=== PATIENT | male | born 1955 | race Caucasian/White ===

== ENCOUNTER 2017-03-24 12:56 | Emergency (ER) | payer OTHER, BC ==
[~2017-03-24] VITALS: Ht 165.1 cm; Wt 95.3 kg
[~2017-03-24 12:56] MED LIST: ALBU0.63 NEB; ALPR0.5T PO; CHOL10002 PO; FLUT1DIS5 IH; LIRA0.6P SQ; MELO15TA6 PO; MOME15OI TP; OLME1TAB35 PO; TADA5TAB PO; XOPENEX HFA15 GM IH
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
[2017-03-24] MEDS ORDERED: IV NORMAL SALINE 1,000ML 1,000 ML IV SCH (13:09)
[2017-03-24] MEDS ORDERED: DIPHTH,PERTUSS(ACELL),TET TOX 0.5 ML DISP.SYRIN. VAX IM ONE (13:15)
[2017-03-24 13:27] LABS: BASO % 0 % (0-3); EOS # 0.1 x10^3/uL (0.0-0.7); EOS % 1 % (0-3); HEMATOCRIT 51.2 % (39.0-53.0); HEMOGLOBIN 16.9 g/dL (13.0-17.5); LYMPH # 2.1 x10^3/uL (1.0-4.8); LYMPH % 17 % (24-48); MEAN CORPUSCULAR HEMOGLOBIN 29 pg (25-35); MEAN CORPUSCULAR HGB CONC 33 g/dL (31-37); MEAN CORPUSCULAR VOLUME 86 fL (79-100); MONO # 0.7 x10^3/uL (0.0-1.1); MONO % 6 % (0-9); NEUT # 9.4 x10^3uL (1.8-7.7); NEUT % 76 % (31-73); PLATELET COUNT 240 x10^3/uL (140-400); RED BLOOD COUNT 5.93 x10^6/uL (4.30-5.70); WHITE BLOOD COUNT 12.4 x10^3/uL (4.0-11.0)
[2017-03-24 13:39] LABS: ALBUMIN 3.8 g/dL (3.4-5.0); CALCIUM 9.3 mg/dL (8.5-10.1); CREATININE 1.4 mg/dL (0.7-1.3); DIRECT BILIRUBIN 0.1 mg/dL (0.0-0.2); GFR 51.4; POTASSIUM 4.5 mmol/L (3.5-5.1); TOTAL BILIRUBIN 0.6 mg/dL (0.2-1.0); TOTAL PROTEIN 7.1 g/dL (6.4-8.2)
[2017-03-24] MEDS ORDERED: IOHEXOL 300 MG/ML 50 ML VIAL. IV ONE (13:50)
[2017-03-24] MEDS ORDERED: IOHEXOL 300 MG/ML 75 ML VIAL. IV ONE (13:50)
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
--- NOTE | 2017-03-24 14:28 | EKG ---
[address] [address] Test Date: 2017-03-24 Test Time: 13:19:14 Pat Name: SATISH BOYD Department: Room: Gender: M Conference Concierge: JACINTO : 1955 Requested By: LACIE SOLITARIO Order Number: [id number] Reading MD: Khris Avalos Measurements Intervals [place] Rate: 86 P: 51 IA: 132 QRS: 26 QRSD: 106 T: 41 QT: 328 QTc: 395 Interpretive Statements SINUS RHYTHM Electronically Signed On 04-07-2017 14:10:32 CDT by Khris Avalos
[2017-03-24] MEDS: MORPHINE SULFATE 2 MG/ML DISP.SYRIN. IV/SQ PRN ×3 (14:45→17:50)
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
[2017-03-24 15:32] LABS: AMPHETAMINE/METHAMPHETAMINE NEG (NEG); BARBITURATES NEG (NEG); BENZODIAZEPINES POS (NEG); CANNABINOIDS NEG (NEG); COCAINE NEG (NEG); METHADONE NEG (NEG); OPIATES NEG (NEG); PHENCYCLIDINE NEG (NEG)
[2017-03-24 15:36] LABS: CLARITY,URINE CLEAR; COLOR,URINE YELLOW
[2017-03-24 15:37] LABS: BACTERIA,URINE 0 /HPF (0-FEW); BILIRUBIN,URINE NEG (NEG); GLUCOSE,URINE 100 mg/dL (NEG); NITRITE,URINE NEG (NEG); RBC,URINE OCC /HPF (0-2); SQUAMOUS EPITHELIAL CELL,UR OCC /LPF; UROBILINOGEN,URINE 0.2 mg/dL (0.2 mg/dL)
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
[2017-03-24 17:39] VITALS: BP 146/79
== END 2017-03-24 17:55 | disposition short-term general hospital (02) ==
LOC: ER 12:56
DX: S22.42XA Multiple fractures of ribs, left side, initial encounter for closed fracture (principal); S00.83XA Contusion of other part of head, initial encounter; E11.9 Type 2 diabetes mellitus without complications; I10 Essential (primary) hypertension; M79.602 Pain in left arm; M25.562 Pain in left knee; Z88.5 Allergy status to narcotic agent; V29.9XXA Motorcycle rider (driver) (passenger) injured in unspecified traffic accident, initial encounter; Y93.55 Activity, bike riding; Y99.8 Other external cause status; Y92.89 Other specified places as the place of occurrence of the external cause
CPT/HCPCS: 36415; 70450; 70491; 71010; 71260; 72125; 72128; 72131; 73030; 73562; 74177; 80048; 80076; 80307; 81001; 82150; 83605; 83690; 85027; 85610; 85730; 86850; 86900; 86901; 90471; 90715; 93005; 96361; 96374; 96376; 99285; G0480; J2270; Q9967; 80305; G0481; G0479; J7030

== ENCOUNTER 2017-03-29 18:13 | Emergency (ER) | payer OTHER, BC ==
[~2017-03-29] VITALS: Ht 165.1 cm; Wt 95.3 kg
[2017-03-29 18:25] VITALS: BP 143/87
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
[2017-03-29 19:18] LABS: BASO % 0 % (0-3); EOS # 0.2 x10^3/uL (0.0-0.7); EOS % 3 % (0-3); HEMATOCRIT 47.2 % (39.0-53.0); HEMOGLOBIN 15.8 g/dL (13.0-17.5); LYMPH # 1.4 x10^3/uL (1.0-4.8); LYMPH % 17 % (24-48); MEAN CORPUSCULAR HEMOGLOBIN 29 pg (25-35); MEAN CORPUSCULAR HGB CONC 33 g/dL (31-37); MEAN CORPUSCULAR VOLUME 87 fL (79-100); MONO # 0.7 x10^3/uL (0.0-1.1); MONO % 8 % (0-9); NEUT # 6.3 x10^3uL (1.8-7.7); NEUT % 73 % (31-73); PLATELET COUNT 257 x10^3/uL (140-400); RED BLOOD COUNT 5.41 x10^6/uL (4.30-5.70); WHITE BLOOD COUNT 8.7 x10^3/uL (4.0-11.0)
[2017-03-29 19:25] LABS: CALCIUM 8.7 mg/dL (8.5-10.1); CREATININE 1.2 mg/dL (0.7-1.3); GFR 61.3; POTASSIUM 4.1 mmol/L (3.5-5.1)
--- NOTE | 2017-03-29 19:30 | EKG ---
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
--- NOTE | 2017-03-30 08:50 | RAD ---
Indication chest pain. Recent left rib fractures. A single view of the chest was obtained and is compared to an examination 5 days earlier. Multiple left rib fractures are again seen. There is no consolidated pneumonia. The heart and pulmonary vessels are normal. There is no pneumothorax. There may be a tiny left pleural effusion. IMPRESSION: Known multiple left rib fractures are reproduced. No consolidated pneumonia seen. No evidence of pneumothorax. Probable tiny left pleural effusion
== END 2017-03-29 20:14 | disposition home or self-care (01) ==
LOC: ER 18:13
DX: R60.0 Localized edema (principal); S22.42XD Multiple fractures of ribs, left side, subsequent encounter for fracture with routine healing; J45.909 Unspecified asthma, uncomplicated; I10 Essential (primary) hypertension; E11.9 Type 2 diabetes mellitus without complications; V89.2XXD Person injured in unspecified motor-vehicle accident, traffic, subsequent encounter
CPT/HCPCS: 36415; 71010; 80048; 82550; 84484; 85027; 93005; 99285-25

== ENCOUNTER → 2017-04-19 | Outpatient (CLI) | payer OTHER, BC ==
[2017-03-29 18:25] VITALS: BP 143/87
--- NOTE | 2017-04-19 15:14 | RAD ---
Bilateral 3 view shoulder radiographs December 18, 2016 Clinical history: Bilateral shoulder pain with decreased range of motion. AP internal and external rotation and transscapular digital radiographs of the right shoulder were obtained. Comparison study is dated 03/24/2017. No fracture or dislocation of either shoulder is seen. Mild to moderate degenerative changes are seen involving both glenohumeral joints and both AC joints. Impression: No fracture or dislocation of either shoulder is seen.
== END | disposition home or self-care (01) ==
LOC: DXRADRC 07:41
PROVIDERS: ATTEND Physician Assistant Medical
DX: M25.511 Pain in right shoulder (principal); M25.512 Pain in left shoulder; V29.9XXA Motorcycle rider (driver) (passenger) injured in unspecified traffic accident, initial encounter
CPT/HCPCS: 73030

== ENCOUNTER → 2017-05-10 | Outpatient (CLI) | payer BC ==
--- NOTE | 2017-05-10 14:55 | RAD ---
Left rib series to include a PA chest radiograph 05/10/2017 Clinical history: History of recent left-sided rib fractures. A PA digital radiograph of the chest was obtained. AP and oblique digital radiographs of the left ribs were obtained. Comparison is made to a CT scan of the chest dated 03/24/2017. The cardiac silhouette is normal in size. The thoracic aorta is tortuous. Atherosclerotic calcification of the thoracic aorta is seen. No acute pulmonary infiltrate is noted. No pneumothorax or pleural effusion is seen. Fractures of the left fourth, fifth, sixth, seventh and eighth ribs are again noted. The distal fracture fragments are mildly displaced inferiorly. The alignment is unchanged. No definite callus formation is seen at this time. No new fracture is seen. Degenerative changes are seen involving the thoracic spine. Impression: Multiple left-sided rib fractures are again seen, unchanged.
== END | disposition home or self-care (01) ==
LOC: DXRADRC 10:58
PROVIDERS: ATTEND Physician Assistant Medical
DX: S22.42XD Multiple fractures of ribs, left side, subsequent encounter for fracture with routine healing (principal); I70.0 Atherosclerosis of aorta; M47.894 Other spondylosis, thoracic region; X58.XXXD Exposure to other specified factors, subsequent encounter
CPT/HCPCS: 71101

== ENCOUNTER → 2017-05-30 | Outpatient (CLI) | payer OTHER, BC ==
--- NOTE | 2017-05-30 09:07 | RAD ---
Indication pain. AP oblique and lateral views of the left elbow were obtained. No bony abnormality is seen
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
== END | disposition home or self-care (01) ==
LOC: DXRADRC 08:23
PROVIDERS: ATTEND Physician Assistant Medical
DX: M19.011 Primary osteoarthritis, right shoulder (principal); M25.562 Pain in left knee; M25.522 Pain in left elbow; V89.2XXA Person injured in unspecified motor-vehicle accident, traffic, initial encounter; Y93.89 Activity, other specified; Y92.89 Other specified places as the place of occurrence of the external cause; Y99.8 Other external cause status
CPT/HCPCS: 73030; 73080; 73562

== ENCOUNTER → 2018-10-06 | Outpatient (CLI) | payer BC ==
--- NOTE | 2018-10-06 16:41 | RAD ---
2 view chest 10/06/2018 CLINICAL INDICATION: Fall with left-sided chest wall pain, chest wall contusion. COMPARISON: Chest 05/10/2017 FINDINGS: Cardiac and mediastinal silhouettes are unremarkable. No pleural effusion, pneumothorax or focal consolidation. No significant change in multiple displaced posterior left rib fracture deformities. IMPRESSION: No acute cardiopulmonary abnormality. Electronically signed by: Ricco Luz MD (10/06/2018 4:37 PM) [facility]
== END | disposition home or self-care (01) ==
LOC: RAD 16:16
PROVIDERS: ATTEND Family Medicine
DX: S20.212A Contusion of left front wall of thorax, initial encounter (principal); M95.4 Acquired deformity of chest and rib; W18.39XA Other fall on same level, initial encounter; Y93.89 Activity, other specified; Y92.89 Other specified places as the place of occurrence of the external cause; Y99.8 Other external cause status
CPT/HCPCS: 71046

== ENCOUNTER 2021-08-24 10:53 | Emergency (ER) | payer MEDICARE, BC ==
[~2021-08-24] VITALS: Ht 165.1 cm; Wt 128.1 kg
[2021-08-24] MEDS ORDERED: IV NORMAL SALINE 1,000ML 1,000 ML IV ONE (11:15)
--- NOTE | 2021-08-24 11:26 | PHYS DOC ---
Past History Past Medical History: Asthma, CVA, Diabetes, Hypertension Additional Past Medical Histor: Chronic back pain ([employer]) Past Surgical History: Cholecystectomy, Tonsillectomy ([employer]) Smoking: Non-smoker Alcohol Use: None Drug Use: None ([employer]) Adult General Chief Complaint Chief Complaint: DIZZY/LIGHT HEADED HPI HPI Patient is a 65-year-old male patient with history of diabetes type 2, hypertension, asthma, CVA, who presents to the ED today with with multiple complaints. Patient is complaining of dizziness that began an hour prior to coming to the ED. Patient states symptoms are worse on ambulation. He states he has had similar symptoms when he had a brain stem stroke in 2019. Patient is also complaining of diarrhea this morning. He states he got exposed to COVID19 by the son on Saturday while watching football. The son tested positive for COVID-19. The son's girlfriend also tested positive for COVID-19. Patient states he received covid 19 moderna vaccines the last 1 being in February 2020. Patient is also complaining of nausea. Patient denies any chest pain, shortness of breath. Denies any headache. Denies any fever. ([employer]) Review of Systems Review of Systems Constitutional: Denies fever or chills [] Eyes: Denies change in visual acuity, redness, or eye pain [] HENT: Denies nasal congestion or sore throat [] Respiratory: Denies cough or shortness of breath [] Cardiovascular: No additional information not addressed in HPI [] GI: Reports diarrhea. Denies abdominal pain, nausea, vomiting, bloody stools : Denies dysuria or hematuria [] Musculoskeletal: Denies back pain or joint pain [] Integument: Denies rash or skin lesions [] Neurologic: Reports dizziness. Denies headache, focal weakness or sensory changes [] Endocrine: Denies polyuria or polydipsia [] All other systems were reviewed and found to be within normal limits, except as documented in this note. ([employer]) Current Medications Current Medications Current Medications Medications (Trade) Dose Ordered Sig/Balta Start Time Stop Time Status Last Admin Dose Admin Sodium Chloride 1,000 ml @ 1,000 mls/hr 1X ONCE 08/24/21 11:15 08/24/21 12:14 UNV ([employer]) Allergies Allergies Allergies Coded Allergies Type Severity Reaction Last Updated Verified codeine Allergy Unknown 10/03/15 Yes ([employer]) Physical Exam Physical Exam Constitutional: Well developed, well nourished, no acute distress, non-toxic appearance. [] HENT: Normocephalic, atraumatic, bilateral external ears normal, oropharynx moist, no oral exudates, nose normal. [] Eyes: PERRLA, EOMI, conjunctiva normal, no discharge. [] Neck: Normal range of motion, no tenderness, supple, no stridor. [] Cardiovascular:Heart rate regular rhythm, no murmur [] Lungs & Thorax: Bilateral breath sounds clear to auscultation [] Abdomen: Bowel sounds normal, soft, no tenderness, no masses, no pulsatile masses. [] Skin: Warm, dry, no erythema, no rash. [] Back: No tenderness, no CVA tenderness. [] Extremities: No tenderness, no cyanosis, no clubbing, ROM intact, no edema. [] Neurologic: Alert and oriented X 3, normal motor function, normal sensory function, no focal deficits noted. Cranial nerves II through XII intact Psychologic: Affect normal, judgement normal, mood normal. [] ([employer]) Current Patient Data Vital Signs Vital Signs Date Time Temp Pulse Resp B/P (MAP) Pulse Ox O2 Delivery O2 Flow Rate FiO2 08/24/21 11:15 86 16 111/67 (82) 97 Room Air 08/24/21 11:04 98.0 Lab Results Laboratory Tests Test 08/24/21 11:17 Glucose (Fingerstick) 196 mg/dL (70-99) H ([employer]) EKG EKG [address] Wright sinus rhythm HR 85 no STEMI[] ([employer]) Radiology/Procedures Radiology/Procedures PROCEDURE: CT CODE STROKE HEAD WO CT scan of the head without contrast 08/24/2021 Clinical History: Dizziness. Code stroke. Technique: Unenhanced, contiguous, 5 mm axial sections were obtained through the head. One or more of the following individualized dose reduction techniques were utilized for this study: 1. Automated exposure control. 2. Adjustment of the mA and/or kV according to patient size. 3. Use of iterative reconstruction technique. Findings: There is generalized parenchymal atrophy. Areas of decreased attenuation are seen within the periventricular and subcortical white matter of both cerebral hemispheres consistent with areas of small vessel ischemic disease. An area of encephalomalacia is seen involving the right parietal occipital lobe. No acute parenchymal abnormality is seen. No extra-axial fluid collection is noted. No skull fracture is seen. Impression: No acute intracranial abnormality is seen. This result was called to the emergency department at 1131 hours. FOR INTERNAL CODING PURPOSES RESULT CODE: (C) Electronically signed by: Geraldo Franklin MD (08/24/2021 11:34 AM) [id number] DICTATED AND SIGNED BY: GERALDO FRANKLIN MD DATE: 08/24/21 1130 CC: EMERGENCY,DEPARTMENT; ARLYN LANG APRN; FATOUMATA MCCARTY MD ~MTH0 0 []PROCEDURE: CT ANGIOGRAPHY HEAD AND NECK CTA of the head and neck with contrast 08/24/2021 Clinical history: Dizziness. History of CVA. Technique: After the intravenous administration of 100 cc of Omnipaque 350, contiguous, 0.625 mm axial sections were obtained through the upper chest, neck and head. Multiplanar 3-D MIP and volume rendered 3-D reconstructed images were obtained. One or more of the following individualized dose reduction techniques were utilized for this study: 1. Automated exposure control. 2. Adjustment of the mA and/or kV according to patient size. 3. Use of iterative reconstruction technique. Findings: Comparison is made to patient's CT scan of the head performed earlier today. Scattered atherosclerotic plaque formation seen involving the thoracic aortic arch and its branches. The origins of the brachiocephalic, left common carotid and left subclavian arteries from the thoracic aortic arch are patent. The orig in of the right common carotid artery and both vertebral arteries are patent. The common carotid arteries are mildly tortuous bilaterally but patent. Mild to moderate atheromatous/atherosclerotic plaque formation seen involving both carotid bifurcations and proximal internal carotid arteries bilaterally. No hemodynamically significant stenosis is seen. The internal carotid arteries within the neck are tortuous but patent. The vertebral arteries are codominant. Both vertebral arteries demonstrate normal antegrade flow. No area stenosis or occlusion is seen. Intracranially, scattered atherosclerotic plaque formation is seen involving the cavernous portions of both internal carotid arteries. No hemodynamically significant stenosis or area of occlusion is seen. The basilar artery is patent. The anterior, middle and posterior cerebral arteries and their branches are within normal limits. No area of stenosis or occlusion is seen. No intracranial aneurysm is noted. The major dural venous sinuses are patent. No area of abnormal contrast enhancement is seen. No acute soft tissue abnormality is seen involving the neck. Degenerative changes are seen involving the uncovertebral and facet joints throughout the cervical disc spaces. Impression: 1. Mild to moderate atheromatous/atherosclerotic plaque formation is seen involving both carotid bifurcations. No hemodynamically significant stenosis is seen. 2. No intracranial stenosis or area of occlusion is seen. Stenosis calculation for CTA are based on measurement of the distal internal carotid artery diameter in accordance with the NASCET methodology. Electronically signed by: Geraldo Franklin MD (08/24/2021 12:24 PM) [id number] DICTATED AND SIGNED BY: GERALDO FRANKLIN MD DATE: 08/24/21 1217 CC: ARLYN LANG APRN; FATOUMATA MCCARTY MD ~MTH0 0 PROCEDURE: PORTABLE CHEST 1V XR CHEST 1V 08/24/2021 11:19 AM INDICATION: Dizziness COMPARISON: 10/06/2018 TECHNIQUE: Portable frontal view of the chest is provided. FINDINGS: The cardiomediastinal silhouette is within normal limits. Lungs are clear. There are no significant pleural effusions. There is no pulmonary vascular congestion. No pneumothorax. No suspicious osseous abnormality. IMPRESSION: There is no acute cardiopulmonary process. Electronically signed by: Hayley Barahona MD (08/24/2021 12:43 PM) [id number] DICTATED AND SIGNED BY: HAYLEY BARAHONA MD DATE: 08/24/21 1241 CC: ARLYN LANG APRN; FATOUMATA MCCARTY MD ~MTH0 0 (ARLYN LANG APRN) Heart Score C/O Chest Pain: N/A Risk Factors: Risk Factors: DM, Current or recent (<one month) smoker, HTN, HLP, family history of CAD, obesity. Risk Scores: Risk Factors: DM, Current or recent (<one month) smoker, HTN, HLP, family history of CAD, obesity. (ARLYN LANG APRN) Course & Med Decision Making Course & Med Decision Making Pertinent Labs and Imaging studies reviewed. (See chart for details) This is a 65-year-old male patient presenting to the ED today complaining of dizziness that today. He states he got up an hour prior to coming to the ED. Patient has history of CVA, and reports having similar symptoms when he had a stroke. He is also complaining of diarrhea and being exposed to the son who tested positive for covid 19. Code stroke was ordered, patient is within TPA window but not a TPA candidate right now because he has no deficits NHISS is negative. Vitals on arrival to the ED temperature 98.0, heart rate 75, respirations 16 on room air, blood pressure 91/62, patient reports taking his blood pressure medicine this morning, blood pressure was repeated 15 minutes later was up to 111/67 with a heart rate of 86. CT of the head is negative, CT angio head and neck was negative for any acute findings, noted for mild to moderate atheromatous/atherosclerotic plaque formation is seen involving both carotid bifurcations. No hemodynamically significant stenosis is seen. No intracranial stenosis or area of occlusion is seen. CBC with a WBC of 3.5, platelet count 130, CMP with glucose of 190, no anion gap, CO2 is normal. Chest x-ray is negative for any acute findings, EKG is negative. Patient is up and ablating with no difficulties. I spoke to neurologist. He stated patient can be discharged to home, patient COVID19 himself due to being covid positive. Once negative he should follow up with his clinic in the next 2 weeks. He should also follow up with his PCP (ARLYN LANG APRN) Dragon Disclaimer Dragon Disclaimer This electronic medical record was generated, in whole or in part, using a voice recognition dictation system. (ARLYN LANG APRN) NIH Stroke Scale: NIH Stroke Scale Response (Comments) Value Level of Consciousness: 0 Alert/Responsive 0 LOC Questions: 0 Answers both correctly 0 Visual: 0 No visual loss 0 Facial Palsy: 0 Normal, symmetrical 0 Motor - Left Arm 0 No drift 0 Motor - Right Arm 0 No drift 0 Motor - Left Leg 0 No drift 0 Motor: Right Leg 0 No drift 0 Limb Ataxia: 0 Absent 0 Sensory: 0 No loss 0 Best Language: 0 Normal 0 Dysathria: 0 Normal 0 Extinction and Inattention: 0 Normal 0 Total 0 Departure Departure: Impression: Primary Impression: Dizziness Additional Impressions: Diarrhea COVID-19 Disposition: 01 HOME / SELF CARE / HOMELESS Condition: STABLE Referrals: FATOUMATA MCCARTY MD (PCP) follow up next week DEV BARNES MD follow up in 2 weeks Patient Instructions: Diarrhea, Dizziness, [id number], Viral Syndrome Additional Instructions: You were evaluated in the emergency room and tested positive for COVID-19. Your CT of the head was negative for any acute findings, your CT angio head and neck is negative for any acute findings but noted for carotid atherosclerotic plaque otherwise no acute findings. You have COVID19, quarantine yourself for 14 days. Please follow-up with the provided neurologist or you on neurologist. The neurologist will talked in the ED was Dr. Barnes. He requested you test for covid in 2 weeks if negative see him in the clinic. Also contact your primary care doctor and set up a follow-up appointment Attending Signature Attending Signature I have reviewed the PA/KNITTING TESTER's note and plan of care. I was available for consultation as needed during the patient's visit in the emergency department. I agree with the clinical impression, plan, and disposition. (MILIND WRIGHT DO) Problem Qualifiers Additional Impressions: Diarrhea Diarrhea type: unspecified type Qualified Codes: R19.7 - Diarrhea, unspecified ARLYN LANG APRN Aug 24, 2021 11:26 MILIND WRIGHT DO Aug 24, 2021 19:21
[2021-08-24] MEDS ORDERED: IOHEXOL 350 MG/ML 100 ML VIAL. IV ONE (11:30)
[2021-08-24] MEDS ORDERED: CONTRAST GIVEN. MC PRN (11:30)
--- NOTE | 2021-08-24 11:37 | RAD ---
CT scan of the head without contrast 08/24/2021 Clinical History: Dizziness. Code stroke. Technique: Unenhanced, contiguous, 5 mm axial sections were obtained through the head. One or more of the following individualized dose reduction techniques were utilized for this study: 1. Automated exposure control. 2. Adjustment of the mA and/or kV according to patient size. 3. Use of iterative reconstruction technique. Findings: There is generalized parenchymal atrophy. Areas of decreased attenuation are seen within th e periventricular and subcortical white matter of both cerebral hemispheres consistent with areas of small vessel ischemic disease. An area of encephalomalacia is seen involving the right parietal occip ital lobe. No acute parenchymal abnormality is seen. No extra-axial fluid collection is noted. No sku ll fracture is seen. Impression: No acute intracranial abnormality is seen. This result was called to the emergency department at 1131 hours. FOR INTERNAL CODING PURPOSES RESULT CODE: (C) Electronically signed by: Geraldo Franklin MD (08/24/2021 11:34 AM) [id number]
[2021-08-24 11:46] LABS: BASO % 0 % (0-3); EOS # 0.1 x10^3/uL (0.0-0.7); EOS % 2 % (0-3); HEMATOCRIT 41.8 % (39.0-53.0); LYMPH # 0.8 x10^3/uL (1.0-4.8); LYMPH % 23 % (24-48); MEAN CORPUSCULAR HEMOGLOBIN 30 pg (25-35); MEAN CORPUSCULAR HGB CONC 33 g/dL (31-37); MEAN CORPUSCULAR VOLUME 91 fL (79-100); MONO # 0.3 x10^3/uL (0.0-1.1); MONO % 8 % (0-9); NEUT # 2.3 x10^3uL (1.8-7.7); NEUT % 67 % (31-73); PLATELET COUNT 130 x10^3/uL (140-400); RED BLOOD COUNT 4.61 x10^6/uL (4.30-5.70); RED CELL DISTRIBUTION WIDTH 13.4 % (11.5-14.5); WHITE BLOOD COUNT 3.5 x10^3/uL (4.0-11.0)
[2021-08-24 11:51] LABS: CALCIUM 8.1 mg/dL (8.5-10.1); GFR 74.8; POTASSIUM 4.1 mmol/L (3.5-5.1)
[2021-08-24 12:08] LABS: ALBUMIN 3.3 g/dL (3.4-5.0); ALBUMIN/GLOBULIN RATIO 1.2 (1.0-1.7); MAGNESIUM 1.9 mg/dL (1.8-2.4); TOTAL BILIRUBIN 0.3 mg/dL (0.2-1.0)
--- NOTE | 2021-08-24 12:27 | RAD ---
CTA of the head and neck with contrast 08/24/2021 Clinical history: Dizziness. History of CVA. Technique: After the intravenous administration of 100 cc of Omnipaque 350, contiguous, 0.625 mm axia l sections were obtained through the upper chest, neck and head. Multiplanar 3-D MIP and volume rende red 3-D reconstructed images were obtained. One or more of the following individualized dose reduction techniques were utilized for this study: 1. Automated exposure control. 2. Adjustment of the mA and/or kV according to patient size. 3. Use of iterative reconstruction technique. Findings: Comparison is made to patient's CT scan of the head performed earlier today. Scattered atherosclerotic plaque formation seen involving the thoracic aortic arch and its branches. The origins of the brachiocephalic, left common carotid and left subclavian arteries from the thoraci c aortic arch are patent. The origin of the right common carotid artery and both vertebral arteries a re patent. The common carotid arteries are mildly tortuous bilaterally but patent. Mild to moderate atheromatous /atherosclerotic plaque formation seen involving both carotid bifurcations and proximal internal guerra tid arteries bilaterally. No hemodynamically significant stenosis is seen. The internal carotid arter ies within the neck are tortuous but patent. The vertebral arteries are codominant. Both vertebral arteries demonstrate normal antegrade flow. No area stenosis or occlusion is seen. Intracranially, scattered atherosclerotic plaque formation is seen involving the cavernous portions o f both internal carotid arteries. No hemodynamically significant stenosis or area of occlusion is see n. The basilar artery is patent. The anterior, middle and posterior cerebral arteries and their branc hes are within normal limits. No area of stenosis or occlusion is seen. No intracranial aneurysm is n oted. The major dural venous sinuses are patent. No area of abnormal contrast enhancement is seen. No acute soft tissue abnormality is seen involving the neck. Degenerative changes are seen involving the unco vertebral and facet joints throughout the cervical disc spaces. Impression: 1. Mild to moderate atheromatous/atherosclerotic plaque formation is seen involving both carotid bifu rcations. No hemodynamically significant stenosis is seen. 2. No intracranial stenosis or area of occlusion is seen. Stenosis calculation for CTA are based on measurement of the distal internal carotid artery diameter in accordance with the NASCET methodology. Electronically signed by: Geraldo Franklin MD (08/24/2021 12:24 PM) [place] [id number]
--- NOTE | 2021-08-24 12:45 | RAD ---
XR CHEST 1V 08/24/2021 11:19 AM INDICATION: Dizziness COMPARISON: 10/06/2018 TECHNIQUE: Portable frontal view of the chest is provided. FINDINGS: The cardiomediastinal silhouette is within normal limits. Lungs are clear. There are no significant pleural effusions. There is no pulmonary vascular congestion. No pneumothora x. No suspicious osseous abnormality. IMPRESSION: There is no acute cardiopulmonary process. Electronically signed by: Drea Justice MD (08/24/2021 12:43 PM) [id number]
[2021-08-24 13:36] VITALS: BP 107/66
[2021-08-24 13:36] LABS: BACTERIA,URINE 0 /HPF (0-FEW); BILIRUBIN,URINE NEG (NEG); CLARITY,URINE CLEAR; COLOR,URINE YELLOW; GLUCOSE,URINE 500 mg/dL (NEG); NITRITE,URINE NEG (NEG); RBC,URINE 0 /HPF (0-2); SQUAMOUS EPITHELIAL CELL,UR FEW /LPF; UROBILINOGEN,URINE 0.2 mg/dL (0.2 mg/dL); WBC,URINE 0 /HPF (0-4)
--- NOTE | 2021-08-24 21:30 | EKG ---
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
== END 2021-08-24 13:58 | disposition home or self-care (01) ==
LOC: ER 10:53
DX: U07.1 COVID-19 (principal); R42 Dizziness and giddiness; R19.7 Diarrhea, unspecified; J45.909 Unspecified asthma, uncomplicated; E11.9 Type 2 diabetes mellitus without complications; I10 Essential (primary) hypertension; Z90.49 Acquired absence of other specified parts of digestive tract; Z86.73 Personal history of transient ischemic attack (TIA), and cerebral infarction without residual deficits; Z88.5 Allergy status to narcotic agent
CPT/HCPCS: 36415; 70450; 70496; 70498; 71045; 80053; 81001; 82553; 82947; 83735; 83880; 84443; 84484; 85025; 85610; 85730; 87426; 93005; 96360; 99285; J7030; Q9967

== ENCOUNTER 2021-11-20 10:27 | Emergency (ER) | payer MEDICARE, BC ==
[~2021-11-20] VITALS: Ht 165.1 cm; Wt 90.0 kg
--- NOTE | 2021-11-20 10:40 | PHYS DOC ---
Past History Past Medical History: Asthma, CVA, Diabetes, Hypertension Additional Past Medical Histor: Chronic back pain Past Surgical History: Cholecystectomy, Tonsillectomy Smoking: Non-smoker Alcohol Use: None Drug Use: None Adult General Chief Complaint Chief Complaint: DIZZY/LIGHT HEADED [facility] Patient is a 66 year old male who presents with vertigo-like symptoms. Had onset of symptoms yesterday. Symptoms are worse with position changes and he describes vertiginous symptoms like the room is spinning. Also some loss of balance when he tries to walk. Does not complain of weakness in any extremity. No headaches. No vision changes. He does have history of old CVA which left him with some residual vision field deficits on the left side as well as some inner ear type symptoms. He has not been sick lately. No fever, chills. No chest pain, shortness of breath, palpitations. Has been eating and drinking nor dagoberto. No nausea or vomiting. Review of Systems Review of Systems Constitutional: Denies fever or chills Eyes: Denies change in visual acuity, redness, or eye pain HENT: Denies nasal congestion or sore throat Respiratory: Denies cough or shortness of breath Cardiovascular: No additional information not addressed in HPI GI: Denies abdominal pain, nausea, vomiting, bloody stools or diarrhea : Denies dysuria or hematuria Musculoskeletal: Denies back pain or joint pain Integument: Denies rash or skin lesions Neurologic: as documented in HPI Endocrine: Denies polyuria or polydipsia All other systems were reviewed and found to be within normal limits, except as documented in this note. Allergies Allergies Allergies Coded Allergies Type Severity Reaction Last Updated Verified codeine Allergy Unknown 10/03/15 Yes Physical Exam Physical Exam Constitutional: Well developed, well nourished, no acute distress, non-toxic appearance HENT: Normocephalic, atraumatic, bilateral external ears normal, oropharynx moist Eyes: PERRLA, EOMI, conjunctiva normal, no discharge Neck: Normal range of motion, no tenderness, supple Cardiovascular:Heart rate regular rhythm, no murmur Lungs & Thorax: Bilateral breath sounds clear to auscultation Skin: Warm, dry, no erythema, no rash Back: Normal ROM Extremities: No tenderness, no cyanosis, no clubbing, ROM intact, no edema Neurologic: Alert and oriented X 3, normal motor function, [id number] intact. Normal steady gait. Cranial nerves II through XII intact bilaterally. Psychologic: Affect normal, judgement normal, mood normal. HINTS EXAM: Fatigable nystagmus worse to the left, given limitations that he has chronic visual field deficits on the far temporal left hurley. No nystagmus when looking right. Nystagmus is horizontal only. Head impulse: no corrective saccade is appreciated Test of skew: normal exam Nystagmus: as above. EKG EKG [] Radiology/Procedures Radiology/Procedures [] Heart Score C/O Chest Pain: N/A Risk Factors: Risk Factors: DM, Current or recent (<one month) smoker, HTN, HLP, family history of CAD, obesity. Risk Scores: Risk Factors: DM, Current or recent (<one month) smoker, HTN, HLP, family history of CAD, obesity. Course & Med Decision Making Course & Med Decision Making Pertinent Labs and Imaging studies reviewed. (See chart for details) Patient is seen and examined on arrival to his room. Neurologic examination is normal. Normal gait. He describes symptoms that seem most typical of vertigo. HINTS exam does not suggest central pathology. Today, will CT head and give meclizine. His review of systems is otherwise negative. 12:25: All results are reviewed and discussed with the patient. No acute findings on CT scan of the head other than his old known CVA. Stable for discharge home. Will follow up with ENT which he has seen in the recent past if his symptoms do not improve. Dragon Disclaimer Dragon Disclaimer This electronic medical record was generated, in whole or in part, using a voice recognition dictation system. Departure Departure: Impression: Primary Impression: Vertigo Disposition: HOME / SELF CARE / HOMELESS Condition: IMPROVED Referrals: FATOUMATA MCCARTY MD (PCP) Patient Instructions: Benign Positional Vertigo ALICIA RAMOS DO Nov 20, 2021 10:40
[2021-11-20] MEDS ORDERED: MECLIZINE 12.5 MG TABLET. PO ONE (10:45)
--- NOTE | 2021-11-20 12:03 | RAD ---
EXAM: CT HEAD WITHOUT CONTRAST. HISTORY: Dizziness, cerebrovascular accident. TECHNIQUE: Computed tomography of the head was performed without intravenous contrast. One or more of the following individualized dose reduction techniques were utilized for this examination: 1. Automated exposure control. 2. Adjustment of the mA and/or kV according to patient size. 3. Use of iterative reconstruction technique. COMPARISON: 08/24/2021. FINDINGS: There is no intracranial hemorrhage. There is a chronic infarct within the parafalcine righ t occipital and parietal lobe. The ventricles are normal in size and position. The visualized paranasal sinuses appear clear. The orbits are unremarkable. The temporal bones are un remarkable. The calvarium reveals no suspicious lesions. IMPRESSION: 1. Chronic right occipitoparietal infarct. No acute intracranial findings. Electronically signed by: Sharri Barber MD (11/20/2021 12:00 PM) [id number]
[2021-11-20] MEDS ORDERED: MECL-75 PO (12:23)
[2021-11-20 12:30] VITALS: BP 135/88
== END 2021-11-20 12:50 | disposition home or self-care (01) ==
LOC: ER 10:27
DX: R42 Dizziness and giddiness (principal); J45.909 Unspecified asthma, uncomplicated; E11.9 Type 2 diabetes mellitus without complications; I10 Essential (primary) hypertension; G89.29 Other chronic pain; Z86.73 Personal history of transient ischemic attack (TIA), and cerebral infarction without residual deficits; Z88.5 Allergy status to narcotic agent
CPT/HCPCS: 70450; 99285